=== PATIENT | female | born 1990 | race Caucasian/White ===

== ENCOUNTER 2022-03-22 20:21 | Emergency (ER) | payer OTHER ==
[~2022-03-22] VITALS: Ht 162.6 cm; Wt 83.9 kg
--- NOTE | 2022-03-22 20:35 | NUR ---
Patient is a/ox4, NAD noted. Patient is ambulatory with steady gait
[2022-03-22] MEDS ORDERED: KETOROLAC TROMETHAMINE 15 MG INJ ONE (20:58)
[2022-03-22] MEDS ORDERED: KETOROLAC TROMETHAMINE 15 MG INJ IVP ONE (21:00)
[2022-03-22] MEDS ORDERED: IV NORMAL SALINE 500 ML BAG IV ONE (21:00)
[2022-03-22 21:17] LABS: HEMATOCRIT 39.4 % (31.2-41.9); MEAN CORPUSCULAR HEMOGLOBIN 30.1 uug (24.7-32.8); MEAN CORPUSCULAR VOLUME 88.5 fL (75.5-95.3); PLATELET COUNT (AUTO) 263 K/uL (179-408)
[2022-03-22 21:19] LABS: CREATININE 0.9 mg/dL (0.6-1.3)
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
[2022-03-22 21:43] LABS: *URINE HCG, QUAL NEG (NEGATIVE)
[2022-03-22] MEDS ORDERED: IV NORMAL SALINE 250 ML IV ONE (22:00)
[2022-03-22] MEDS ORDERED: IOHEXOL 350 100 ML INFUS..BTL ONE (22:00)
[2022-03-22] MEDS ORDERED: SWABABLE VALVE TRANSFER SET EA MC ONE (22:00)
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
--- NOTE | 2022-03-22 23:19 | NUR ---
Patient is bacl from CT
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
[2022-03-23 01:08] VITALS: BP 127/70
== END 2022-03-23 01:00 | disposition home or self-care (01) ==
LOC: ER 20:27
DX: S09.90XA Unspecified injury of head, initial encounter (principal); S40.022A Contusion of left upper arm, initial encounter; S40.021A Contusion of right upper arm, initial encounter; S10.91XA Abrasion of unspecified part of neck, initial encounter; T71.193A Asphyxiation due to mechanical threat to breathing due to other causes, assault, initial encounter; Y04.8XXA Assault by other bodily force, initial encounter; Y92.89 Other specified places as the place of occurrence of the external cause; R07.89 Other chest pain; M79.651 Pain in right thigh; M79.661 Pain in right lower leg
CPT/HCPCS: 99285; 70450; 96374; 80048; 84703; 85025; 36415; 73030 ×2; 73060 ×2; 73080; 73551; 73590; 70486; 70498; 71260; 74177; J1885; Q9967; J7040